=== PATIENT | female | born 1980 | race Hispanic/Latino ===

== ENCOUNTER → 2023-11-24 | Outpatient (CLI) | payer OTHER ==
[~2023-11-24] MED LIST: GADOTERATE MEGLUMINE 10 MMOL/20 ML VIAL IV ONE
== END | disposition home or self-care (01) ==
LOC: RAH 13:16
PROVIDERS: ATTEND Internal Medicine Medical Oncology
DX: Z15.01 Genetic susceptibility to malignant neoplasm of breast (principal); R92.323 Mammographic fibroglandular density, bilateral breasts
CPT/HCPCS: 77049; A9575

== ENCOUNTER → 2024-11-28 | Outpatient (CLI) | payer OTHER ==
--- NOTE | 2024-11-28 17:00 | HMCIMG ---
Bilateral breast MRI with and without gadolinium HISTORY: COMPARISON: None. . TECHNIQUE: Axial T2, axial STIR, 3-D axial T1, axial STIR water suppression-bright silicone, and VIBRANT dynamic contrast-enhanced pre and post substraction sequences, and sagittal T2 STIR sequences. Contrast: MultiHance, 15 cc, IV, no complications. Findings: FINDINGS: Heterogeneous fibroglandular tissue is identified.. There is minimal background parenchymal enhancement (BPE). Background parenchymal enhancement is symmetric The pre and postcontrast images demonstrate no significant breast lesions on either side. There is no abnormal enhancement or washout of any focus within either breast to suggest the presence of a worrisome breast lesion. . No areas of non-mass enhancement are identified. There is no nipple retraction or skin thickening. IMPRESSION: 1. No worrisome lesions to suggest neoplastic disease. 2. Routine yearly bilateral mammographic follow-up recommended. BI-RADS: CATEGORY 2: BENIGN FINDINGS Note: A negative x-ray should not delay biopsy if a dominant or clinically suspicious mass is present, since 8-10% of cancers are not identified by mammography. Dense breasts particularly, may obscure an underlying neoplasm.
== END | disposition home or self-care (01) ==
LOC: RAH 13:59
PROVIDERS: ATTEND Internal Medicine Medical Oncology
DX: N60.09 Solitary cyst of unspecified breast (principal); Z15.01 Genetic susceptibility to malignant neoplasm of breast; N64.89 Other specified disorders of breast
CPT/HCPCS: 77049; A9575